=== PATIENT | female | born 1975 | race African-American/Black ===

== ENCOUNTER 2023-04-19 09:02 | Emergency (ER) | payer SELFPAY ==
[2023-04-19 09:38] LABS: #Eosinphils 0.3 10x3/uL (0.0-0.5); #Monocytes 0.4 10x3/uL (0.0-1.1); #Neutrophils 3.3 10x3/uL (1.5-8.4); %Basophils 0.4 % (0.0-2.0); %Lymphocytes 41.5 % (18.0-47.0); %Monocytes 5.9 % (0.0-10.0); %Neutrophils 47.9 % (40.0-75.0); Hematocrit 39.5 % (34.9-44.5); Mean Corpuscular HGB CONC 32.9 g/dL (32.0-36.0); Mean Platelet Volume 9.4 fl (7.4-10.4); Platelet Count 283 10x3/uL (150-450); RBC Distribution Width 13.3 % (11.5-14.5); Red Blood Cell (RBC) Count 4.49 10x6/uL (3.90-5.03); White Blood Cell (WBC) Count 6.8 10x3/uL (3.5-10.5)
[2023-04-19 09:57] LABS: ALT (SGPT) 18 U/L (8-55); AST (SGOT) 17 U/L (5-34); Alkaline Phosphatase 63 U/L (40-110); Anion Gap 14 mmol/L (10-20); BUN (Urea Nitrogen) 9 mg/dL (7.0-18.7); Bilirubin, Total 0.6 mg/dL (0.2-1.2); Calc. Creatinine Clearance 0 mL/min (70-130); Calcium 9.1 mg/dL (7.8-10.44); Carbon Dioxide 20 mmol/L (22-29); Chloride 108 mmol/L (98-107); Estimated GFR 91; Globulin 3.8 g/dL (2.4-3.5); Glucose 121 mg/dL (70-105); Potassium 3.9 mmol/L (3.5-5.1); Protein, Total 7.8 g/dL (6.0-8.3); Sodium 138 mmol/L (136-145)
[2023-04-19 10:02] LABS: Troponin I Less than 0.010 ng/mL (< 0.028)
== END 2023-04-19 10:30 | disposition home or self-care (01) ==
LOC: CSHERS 09:02
DX: I10 Essential (primary) hypertension (principal)
CPT/HCPCS: 80053; 84484; 85025; 93005

== ENCOUNTER 2024-07-25 09:09 | Emergency (ER) | payer BC | END 2024-07-25 09:35 | disposition home or self-care (01) | LOC: CSHERS 09:09 | DX: S43.422A Sprain of left rotator cuff capsule, initial encounter (principal); I10 Essential (primary) hypertension; X58.XXXA Exposure to other specified factors, initial encounter | CPT/HCPCS: 99283 ==